=== PATIENT | female | born 1955 ===

== ENCOUNTER 2021-12-15 21:59 | Emergency (ER) | payer MEDICARE, OTHER ==
[2021-12-15 23:11] LABS: ANION GAP 15.6 mEq/L (7-13)
[2021-12-16 01:14] VITALS: BP 135/79; PULSE 89
== END 2021-12-16 01:51 | disposition home or self-care (01) ==
LOC: DL.ED 21:59
DX: S80.12XA Contusion of left lower leg, initial encounter (principal); R60.0 Localized edema; W19.XXXA Unspecified fall, initial encounter
CPT/HCPCS: 36415; 73700-LT; 80053; 83605; 85025; 85610; 99284-25

== ENCOUNTER 2023-03-06 05:23 | Day surgery (SDC) | payer MEDICARE ==
[2023-03-06] MEDS ORDERED: fentaNYL 100 MCG/2 ML SDV IV ONE ×3 (05:24→06:28)
[2023-03-06] MEDS ORDERED: Midazolam 1 MG/ML 2 ML SDV IV ONE ×3 (05:24→06:29)
[2023-03-06] MEDS ORDERED: Dextrose 5%-0.45% NaCl 1,000 ML IV SCH (05:30)
[2023-03-06] MEDS ORDERED: Midazolam 1 MG/ML 2 ML SDV ONE (06:18)
[2023-03-06] MEDS ORDERED: fentaNYL 100 MCG/2 ML SDV ONE (06:19)
[2023-03-06 07:50] VITALS: PULSE 52
[2023-03-06 07:51] VITALS: BP 129/55
== END 2023-03-06 08:07 | disposition home or self-care (01) ==
LOC: DL.ENDO 05:23
PROVIDERS: ATTEND Internal Medicine Gastroenterology
DX: K25.9 Gastric ulcer, unspecified as acute or chronic, without hemorrhage or perforation (principal); K31.7 Polyp of stomach and duodenum; C18.9 Malignant neoplasm of colon, unspecified; D64.9 Anemia, unspecified; J30.9 Allergic rhinitis, unspecified; Z98.51 Tubal ligation status; Z90.710 Acquired absence of both cervix and uterus; Z15.09 Genetic susceptibility to other malignant neoplasm; Z98.890 Other specified postprocedural states
CPT/HCPCS: 43239; 87077; J2250; J3010; J7042